=== PATIENT | male | born 1985 | race Hispanic/Latino ===

== ENCOUNTER 2020-12-28 08:50 | Outpatient (CLI) | payer BC | END 2020-12-28 08:51 | disposition home or self-care (01) | LOC: CSHWCC 08:50 | PROVIDERS: ATTEND Nurse Practitioner Family | DX: T81.89XA Other complications of procedures, not elsewhere classified, initial encounter (principal); T88.8XXS Other specified complications of surgical and medical care, not elsewhere classified, sequela; E11.628 Type 2 diabetes mellitus with other skin complications; E66.3 Overweight; E78.2 Mixed hyperlipidemia; I10 Essential (primary) hypertension | CPT/HCPCS: 97605 ==

== ENCOUNTER 2020-12-30 09:16 | Outpatient (CLI) | payer BC | END 2020-12-30 09:17 | disposition home or self-care (01) | LOC: CSHWCC 09:16 | PROVIDERS: ATTEND Nurse Practitioner Family | DX: T81.89XA Other complications of procedures, not elsewhere classified, initial encounter (principal); T88.8XXS Other specified complications of surgical and medical care, not elsewhere classified, sequela; E11.628 Type 2 diabetes mellitus with other skin complications; E66.3 Overweight; E78.2 Mixed hyperlipidemia; I10 Essential (primary) hypertension | CPT/HCPCS: 97607 ==

== ENCOUNTER 2021-01-03 08:49 | Outpatient (CLI) | payer BC | END 2021-01-03 08:50 | disposition home or self-care (01) | LOC: CSHWCC 08:49 | PROVIDERS: ATTEND Nurse Practitioner Family | DX: E11.628 Type 2 diabetes mellitus with other skin complications (principal); E66.3 Overweight; E78.2 Mixed hyperlipidemia; I10 Essential (primary) hypertension; T81.89XD Other complications of procedures, not elsewhere classified, subsequent encounter; T88.8XXD Other specified complications of surgical and medical care, not elsewhere classified, subsequent encounter | CPT/HCPCS: 11042; 97605 ==

== ENCOUNTER 2021-01-06 10:44 | Outpatient (CLI) | payer BC | END 2021-01-06 10:45 | disposition home or self-care (01) | LOC: CSHWCC 10:44 | PROVIDERS: ATTEND Nurse Practitioner Family | DX: T81.89XD Other complications of procedures, not elsewhere classified, subsequent encounter (principal); T88.8XXD Other specified complications of surgical and medical care, not elsewhere classified, subsequent encounter; E11.628 Type 2 diabetes mellitus with other skin complications; E78.2 Mixed hyperlipidemia; E66.3 Overweight; I10 Essential (primary) hypertension | CPT/HCPCS: 97605 ==

== ENCOUNTER 2021-01-10 08:47 | Outpatient (CLI) | payer BC | END 2021-01-10 08:48 | disposition home or self-care (01) | LOC: CSHWCC 08:47 | PROVIDERS: ATTEND Nurse Practitioner Family | DX: T81.89XA Other complications of procedures, not elsewhere classified, initial encounter (principal); T88.8XXS Other specified complications of surgical and medical care, not elsewhere classified, sequela; E11.628 Type 2 diabetes mellitus with other skin complications; E66.3 Overweight; E78.2 Mixed hyperlipidemia; I10 Essential (primary) hypertension | CPT/HCPCS: 99212; G0463 ==